=== PATIENT | female | born 1950 | race Caucasian/White ===

== ENCOUNTER 2019-08-27 07:23 | Emergency (ER) | payer OTHER ==
[2019-08-27] MEDS ORDERED: KETOROLAC 30 MG/ML INJ ONE (08:16)
--- NOTE | 2019-08-27 09:10 | RAD REPORT ---
EXAM DESCRIPTION: RAD - Hip Right 2 View - 08/27/2019 8:05 am CLINICAL HISTORY: Persistent right hip pain following fall COMPARISON: None. FINDINGS: AP and frog-leg views of the right hip were obtained. There is no fracture or dislocation . No acute or destructive bony process seen. IMPRESSION: Negative right hip examination for acute findings.
--- NOTE | 2019-08-27 09:10 | RAD REPORT ---
EXAM DESCRIPTION: RAD - Pelvis - 08/27/2019 8:07 am CLINICAL HISTORY: Pelvis pain, back pain and right hip pain persisting after fall COMPARISON: None. TECHNIQUE: AP imaging of the pelvis was obtained. FINDINGS: No fracture of the bony pelvis. SI joints and pubic symphysis are within normal limits. No acute hip joint finding. Phleboliths are seen along the pelvic floor. IMPRESSION: No acute pelvis finding.
--- NOTE | 2019-08-27 09:12 | RAD REPORT ---
EXAM DESCRIPTION: RAD - Lumbar Spine 3 Views - 08/27/2019 8:07 am CLINICAL HISTORY: Persistent back, pelvis and right hip pain following fall COMPARISON: None. FINDINGS: A three-view lumbar spine examination was performed. Lumbar bodies are normal in height an d alignment. No fracture or acute bony process seen. Disc space narrowing present at L1-2 level with significant sclerotic changes to the endplates is well is large anterior and moderate posterior endpl ate spurs. Posterior endplate spurring seen inferior endplate L2. L2-3 disc space is slightly narrowe d. L5-S1 disc space narrowing also present. Patient has prominent mid and lower lumbar facet joint de generative change. No pars defect confirmed. IMPRESSION: Patient has prominent degenerative change most notable at the L1-2 disc space and facet joints from L3-S1. No acute compression fracture.
--- NOTE | 2019-08-27 09:39 | ER ---
Nurse's Notes [facility] Name: Priscilla Landers Age: 69 yrs Sex: Female : 1950 Arrival Date: 08/27/2019 Time: 07:25 Bed 24 Private MD: Diagnosis: Contusion of right hip Presentation: 08/27 07:37 Presenting complaint: Patient states: R hip and R low back pain after falling 3 weeks ss ago. Transition of care: patient was not received from another setting of care. Onset of symptoms was August 06, 2019. Risk Assessment: Do you want to hurt yourself or someone else? Patient reports no desire to harm self or others. Initial Sepsis Screen: Does the patient meet any 2 criteria? No. Patient's initial sepsis screen is negative. Does the patient have a suspected source of infection? No. Patient's initial sepsis screen is negative. Care prior to arrival: None. 07:37 Method Of Arrival: Ambulatory ss 07:37 Acuity: ALESIA 4 ss Historical: - Allergies: 07:44 IV contrast; ss 07:44 Levaquin; ss 07:44 Advair Diskus; ss 07:44 Biaxin; ss 07:44 Lipitor; ss 07:44 pravastatin; ss 07:44 Lyrica; ss 07:44 metformin; ss 07:44 Niaspan; ss 07:44 Skelaxin; ss 07:44 Xylocaine; ss 07:44 Adhesive; ss - Home Meds: 07:44 levothyroxine 100 mcg tab 1 tab once daily [Active]; Vit D [Active]; Basaglar 30 mg ss [Active]; - PMHx: 07:44 Diabetes - IDDM; Pagets disease of bone; Hypothyroidism; Breast CA; Shingles; Kidney ss stones; Lymphedema; - Immunization history:: Adult Immunizations up to date. - Social history:: Smoking status: Patient/guardian denies using tobacco. - Ebola Screening: : Patient denies exposure to infectious person Patient denies travel to an Ebola-affected area in the 21 days before illness onset. Screenin:59 Abuse screen: Denies threats or abuse. Nutritional screening: No deficits noted. em Tuberculosis screening: No symptoms or risk factors identified. Fall Risk None identified. Assessment: 07:45 General: Appears in no apparent distress. comfortable, Behavior is calm, cooperative. em Pain: Complains of pain in right lower back Pain currently is 8 out of 10 on a pain scale. Neuro: Level of Consciousness is awake, alert, obeys commands, Oriented to person, place, time, situation, Appropriate for age. Cardiovascular: Capillary refill < 3 seconds Patient's skin is warm and dry. Respiratory: Airway Respiratory effort is even, unlabored, Respiratory pattern is regular, symmetrical. Derm: Skin is intact, is healthy with good turgor, Skin is pink, warm \T\ dry. Musculoskeletal: Capillary refill < 3 seconds, Range of motion: intact in all extremities. 08:00 General: The previous assessment is accurate, call light remains within reach. ss 08:48 Reassessment: Patient appears in no apparent distress at this time. Patient and/or em family updated on plan of care and expected duration. Pain level reassessed. Patient is alert, oriented x 3, equal unlabored respirations, skin warm/dry/pink. rates pain 6/10 Patient states feeling better. 09:46 Reassessment: Patient appears in no apparent distress at this time. Patient and/or em family updated on plan of care and expected duration. Pain level reassessed. Patient is alert, oriented x 3, equal unlabored respirations, skin warm/dry/pink. rates pain 5/10. Vital Signs: 07:44 Resp 16; Weight 83.91 kg; Height 5 ft. 6 in. (167.64 cm); Pain 8/10; ss 07:49 Temp 98.7(O); ss 07:51 BP 143 / 78; Pulse 67; Pulse Ox 99% on R/A; em 09:46 BP 138 / 81; Pulse 59; Resp 18; Pulse Ox 97% on R/A; Pain 5/10; em 07:44 Body Mass Index 29.86 (83.91 kg, 167.64 cm) ss ED Course: 07:25 Patient arrived in ED. as 07:28 Raman Gomes MD is Attending Physician. gs 07:37 Triage completed. ss 07:44 Arm band placed on right wrist. ss 07:46 Rupesh Reis LVN is Primary Nurse. em 07:59 Patient has correct armband on for positive identification. Bed in low position. Call em light in reach. Pulse ox on. NIBP on. 08:05 Lumbar Spine (3 Views) XRAY In Process Unspecified. EDMS 08:05 Hip Right 2 View XRAY In Process Unspecified. EDMS 08:05 Pelvis XRAY In Process Unspecified. EDMS 09:37 Clive Mejia MD is Referral Physician. gs 09:45 No provider procedures requiring assistance completed. Patient did not have IV access em during this emergency room visit. Administered Medications: 08:19 Drug: TORadol 30 mg Route: IM; Site: left deltoid; em 08:48 Follow up: Response: No adverse reaction; Pain is decreased em Outcome: 09:39 Discharge ordered by . gs 09:45 Discharged to home ambulatory. em 09:45 Condition: good 09:45 Discharge instructions given to patient, Instructed on discharge instructions, follow up and referral plans. Demonstrated understanding of instructions, follow-up care. 09:46 Patient left the ED. em Signatures: Dispatcher [employer] EDHI Rupesh Reis, KNEE BOLTER KNEE BOLTER em Ally Talbot Shelby, ANDREW RN Raman Olvera MD MD
--- NOTE | 2019-08-27 09:40 | EDPHYS ---
Physician Documentation [facility] Name: Priscilla Landers Age: 69 yrs Sex: Female : 1950 Arrival Date: 08/27/2019 Time: 07:25 Bed 24 Private MD: ED Physician Raman Gomes HPI: 08/27 09:34 This 69 yrs old Female presents to ER via Ambulatory with complaints of Hip gs Pain, Leg Pain. 09:34 The patient or guardian reports an injury. sustained from a fall, while walking. The gs complaints affect the right hip. Onset: The symptoms/episode began/occurred 1 week(s) ago, and became persistent. Modifying factors: the symptoms are aggravated by any movement. Associated signs and symptoms: Pertinent negatives: weakness. Severity of symptoms: At their worst the symptoms were moderate, in the emergency department the symptoms are unchanged. The patient has experienced similar episodes in the past, a few times. Historical: - Allergies: 07:44 IV contrast; ss 07:44 Levaquin; ss 07:44 Advair Diskus; ss 07:44 Biaxin; ss 07:44 Lipitor; ss 07:44 pravastatin; ss 07:44 Lyrica; ss 07:44 metformin; ss 07:44 Niaspan; ss 07:44 Skelaxin; ss 07:44 Xylocaine; ss 07:44 Adhesive; ss - Home Meds: 07:44 levothyroxine 100 mcg tab 1 tab once daily [Active]; Vit D [Active]; Basaglar 30 mg ss [Active]; - PMHx: 07:44 Diabetes - IDDM; Pagets disease of bone; Hypothyroidism; Breast CA; Shingles; Kidney ss stones; Lymphedema; - Immunization history:: Adult Immunizations up to date. - Social history:: Smoking status: Patient/guardian denies using tobacco. - Ebola Screening: : Patient denies exposure to infectious person Patient denies travel to an Ebola-affected area in the 21 days before illness onset. ROS: 09:34 All other systems are negative. gs Exam: 09:34 Eyes: Pupils equal round and reactive to light, extra-ocular motions intact. Lids and gs lashes normal. Conjunctiva and sclera are non-icteric and not injected. Cornea within normal limits. Periorbital areas with no swelling, redness, or edema. Chest/axilla: Normal chest wall appearance and motion. Nontender with no deformity. No lesions are appreciated. Cardiovascular: Regular rate and rhythm with a normal S1 and S2. No gallops, murmurs, or rubs. Normal PMI, no JVD. No pulse deficits. Respiratory: Lungs have equal breath sounds bilaterally, clear to auscultation and percussion. No rales, rhonchi or wheezes noted. No increased work of breathing, no retractions or nasal flaring. Abdomen/GI: Soft, non-tender, with normal bowel sounds. No distension or tympany. No guarding or rebound. No evidence of tenderness throughout. Skin: Warm, dry with normal turgor. Normal color with no rashes, no lesions, and no evidence of cellulitis. Neuro: Awake and alert, GCS 15, oriented to person, place, time, and situation. Cranial nerves II-XII grossly intact. Motor strength 5/5 in all extremities. Sensory grossly intact. Cerebellar exam normal. Normal gait. 09:34 Constitutional: The patient appears alert, awake. 09:34 Back: pain, that is mild, vertebral tenderness, is appreciated at L3 and L4. 09:34 Musculoskeletal/extremity: ROM: limited active range of motion due to pain, limited passive range of motion due to pain, Perfusion: the patient is normally perfused throughout, Sensation intact. Joints: the right hip displays painful range of motion, tenderness. Vital Signs: 07:44 Resp 16; Weight 83.91 kg; Height 5 ft. 6 in. (167.64 cm); Pain 8/10; ss 07:49 Temp 98.7(O); ss 07:51 BP 143 / 78; Pulse 67; Pulse Ox 99% on R/A; em 09:46 BP 138 / 81; Pulse 59; Resp 18; Pulse Ox 97% on R/A; Pain 5/10; em 07:44 Body Mass Index 29.86 (83.91 kg, 167.64 cm) MDM: 07:34 Patient medically screened. gs 09:34 Differential diagnosis: intertrochanteric fracture, arthritis, strain. Data reviewed: vital signs, nurses notes, radiologic studies. Counseling: I had a detailed discussion with the patient and/or guardian regarding: the historical points, exam findings, and any diagnostic results supporting the discharge/admit diagnosis, radiology results, the need for outpatient follow up, a orthopedic surgeon, possible mri . Response to treatment: the patient's symptoms have mildly improved after treatment, and as a result, I will discharge patient. 08/27 07:35 Order name: Lumbar Spine (3 Views) XRAY; Complete Time: 09:14 gs 08/27 07:35 Order name: Hip Right 2 View XRAY; Complete Time: 09:14 gs 08/27 07:35 Order name: Pelvis XRAY; Complete Time: :14 Administered Medications: : Drug: TORadol 30 mg Route: IM; Site: left deltoid; em 08:48 Follow up: Response: No adverse reaction; Pain is decreased em Disposition: 08/27/19 09:39 Discharged to Home. Impression: Contusion of right hip. - Condition is Stable. - Discharge Instructions: Contusion. - Medication Reconciliation Form, Thank You Letter, Antibiotic Education, Prescription Opioid Use form. - Follow up: Clive Mejia MD; When: 2 - 3 days; Reason: Re-evaluation by your physician. Signatures: Dispatcher [employer] EDRupesh Cagle, GERARD MONUMENT MASON Moira Lewis RN RN Raman Olvera MD MD gs Corrections: (The following items were deleted from the chart) 09:46 09:39 08/27/2019 09:39 Discharged to Home. Impression: Contusion of right hip. em Condition is Stable. Forms are Medication Reconciliation Form, Thank You Letter, Antibiotic Education, Prescription Opioid Use. Follow up: Clive Mejia; When: 2 - 3 days; Reason: Re-evaluation by your physician. gs
[2019-08-27 09:54] VITALS: TEMP 98.7
[2019-08-27 09:56] VITALS: BP 138/81; O2SAT 97
== END 2019-08-27 09:46 | disposition home or self-care (01) ==
LOC: ER 07:23
DX: S70.01XA Contusion of right hip, initial encounter (principal); W19.XXXA Unspecified fall, initial encounter; Y93.01 Activity, walking, marching and hiking; Y92.9 Unspecified place or not applicable; E11.9 Type 2 diabetes mellitus without complications; E03.9 Hypothyroidism, unspecified; Z85.3 Personal history of malignant neoplasm of breast; Z88.1 Allergy status to other antibiotic agents; Z88.5 Allergy status to narcotic agent; Z88.6 Allergy status to analgesic agent; Z88.8 Allergy status to other drugs, medicaments and biological substances; Z91.041 Radiographic dye allergy status
CPT/HCPCS: 72100; 72170; 96372; 99283